=== PATIENT | female | born 1985 | race African-American/Black ===

== ENCOUNTER 2016-12-24 14:12 | Emergency (ER) | payer OTHER ==
[~2016-12-24] VITALS: Ht 170.2 cm; Wt 98.9 kg
[~2016-12-24 14:12] MED LIST: FLONASE120 SPRAY/ NASB; NAPROXEN500 MG PO; TESSALON PERLE100 M1 PO; TESSALON PERLE100 MG PO; VENTOLIN HFA18 GM INH; VENTOLIN1 PUF INH
--- NOTE | 2016-12-24 14:50 | ED CARDIAC/CP/PALPITATIONS ---
History of Present Illness General Chief Complaint: Chest Pain Stated Complaint: CP Source: patient Exam Limitations: no limitations Vital Signs & Intake/Output Vital Signs & Intake/Output Vital Signs Date Time Temp Pulse Resp B/P Pulse O2 O2 Flow FiO2 Ox Delivery Rate 12/24 1720 98.6 76 18 126/84 98 Room Air 12/24 1532 96 Room Air 12/24 1420 97.0 72 18 123/84 98 Room Air Allergies Coded Allergies: NO KNOWN ALLERGIES (UNKNOWN 12/24/16) Reconcile Medications Omeprazole Magnesium (Prilosec Otc) 20 MG TABLET.DR 1 TAB PO DAILY PRN PUD Triage Note: PT STATES THAT AT 1245 SHE STARTED TO GET A DULL CRAMPING FEELING MID EPIGASTRIC AREA AND IT HAS BEEN SLOWLY INCREASING, STATES THAT 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 yes Onset: Gradual Duration: better Timing: recent history Location: abdomen Radiation: no radiation Nitro Today/Relief: no nitro taken today : No Patient currently breastfeeds: No HPI: Patient is a 31-year-old female with a past medical history of chronic neck and back pain who states in the past week she's increase her dosing of ibuprofen for her pain where she states that today while at rest she had a gradual onset of epigastric discomfort no provocative eating had occurred prior to onset. Patient states that with no medications her symptoms have improved and she currently is a 3/10 dull epigastric pain. Patient denies any significant alcohol use. Denies any fever chills chest pain arm pain jaw pain nausea vomiting. Patient currently is menstruating. Last bowel movement was with the last 24 hours no blood no melena noted (GUNNAR TANG) Past History Travel History Traveled to [place] past 21 day No Medical History Any Pertinent Medical History? see below for history Neurological: NONE EENT: NONE Cardiovascular: NONE Respiratory: NONE Gastrointestinal: NONE Hepatic: NONE Renal: NONE Musculoskeletal: NONE Psychiatric: NONE Endocrine: diabetes Surgical History Surgical History: non-contributory Psychosocial History What is your primary language Lithuanian Tobacco Use: Never used ETOH Use: denies use Illicit Drug Use: denies illicit drug use Family History Hx Contributory? No (GUNNAR TANG) Review of Systems Review of Systems Constitutional: Reports: no symptoms. EENTM: Reports: no symptoms. Respiratory: Reports: no symptoms. Cardiovascular: Reports: no symptoms. GI: Reports: see HPI, abdominal pain. Genitourinary: Reports: no symptoms. Musculoskeletal: Reports: no symptoms. Skin: Reports: no symptoms. Neurological/Psychological: Reports: no symptoms. Hematologic/Endocrine: Reports: no symptoms. Immunologic/Allergic: Reports: no symptoms. All Other Systems: Reviewed and Negative (GUNNAR TANG) Physical Exam Physical Exam General Appearance: no apparent distress, alert, comfortable Cardiovascular: regular rate/rhythm Comments: HEENT: Normal EENT exam, Neck: Supple, no lymphadenopathy, normal range of motion without pain or tenderness Back: Nontender, no CVA tenderness. Cardiovascular: Regular rate and rhythms no murmurs rubs or gallops, normal JVP Respiratory: Chest nontender. No respiratory distress.breath sounds clear to auscultation bilaterally Abdomen: Soft mild epigastric point tenderness, no right upper quadrant tenderness no right lower quadrant tenderness no peritoneal signs nondistended, no appreciable organomegaly. Normal bowel sounds. No ascites Extremity: No edema, no calf tenderness to palpation, normal and equal pulses. Neuro: Alert oriented x3, motor sensory normal, cranial nerves II through XII grossly intact. Skin: No appreciable rash on exposed skin, skin is warm and dry. Psych: Mood and affect is normal, memory and judgment is normal. Core Measures ACS in differential dx? Yes Severe Sepsis Present: No Septic Shock Present: No (GUNNAR TANG) Progress Differential Diagnosis: AMI, aortic dissection, atrial fibrillation, cholecystitis, CHF/pulm edema, costochondritis, hyperkalemia, hypovolemia, hyperthyroid, hyperventilation, intracranial hemorrhage, musculoskeletal pain, myocarditis, pancreatitis, pericarditis, pneumonia, pneumothorax, PSVT, pulmonary embolism, PUD/GERD, PVCs/PACs, respiratory failure, rib fracture, sepsis, unstable angina, WPW syndrome Plan of Care: Orders Procedure Date/time Status TROPONIN LEVEL 12/24 1510 Complete LIPASE 12/24 1510 Complete HUMAN BETA HCG SCREEN 12/24 1510 Complete COMPREHENSIVE METABOLIC PANEL 12/24 1510 Complete CBC WITHOUT DIFFERENTIAL 12/24 1510 Complete AMYLASE 12/24 1510 Complete EKG 12/24 1413 Active Laboratory Tests 12/24/16 1529: Anion Gap 11, Estimated GFR > 60, BUN/Creatinine Ratio 26.7 H, Glucose 98, Calcium 9.6, Total Bilirubin 0.3, AST 86 H, ALT 73 H, Alkaline Phosphatase 84, Troponin I < 0.01, Total Protein 7.6, Albumin 4.3, Globulin 3.3, Albumin/ Globulin Ratio 1.3, Amylase 57, Lipase 96, Total Beta HCG NEGATIVE, CBC w Diff NO MAN DIFF REQ, RBC 4.29, MCV 88.7, MCH 29.5, RDW 13.7, MPV 8.1, Gran % 68.5, Lymphocytes % 25.4, Monocytes % 4.3, Eosinophils % 1.5, Basophils % 0.3, Absolute Granulocytes 5.1, Absolute Lymphocytes 1.9, Absolute Monocytes 0.3, Absolute Eosinophils 0.1, Absolute Basophils 0, PUBS MCHC 33.3 Due to history of present illness and exam findings patient has suspicion of peptic ulcer disease. Patient had unremarkable labs. Patient describes no cardiovascular complaints or pulmonary complaints. Patient has reproducible pain upon epigastric point tenderness and patient also has been taking significant NSAIDs. Patient was given GI cocktail and had resolution of epigastric pain. Patient was strongly advised follow-up at GI. And to avoid NSAIDs in the future. Upon discharge patient looks well no apparent distress and will comply with discharge instructions and had no questions (GUNNAR TANG) Initial ED EK BPM NORMAL SINUS RHYTHM (GUNNAR TANG) Departure Departure Disposition: HOME OR SELF CARE Condition: Stable Clinical Impression Primary Impression: Epigastric abdominal pain Referrals: RAMYA GRULLON,DIAMANTE MOFFETT MD,KONG Martinez (PCP/Family) Additional Instructions: As discussed please avoid NSAID such as ibuprofen, Motrin or Advil as this may worsen your symptoms, please begin [id number] Tylenol for pain and inflammation. Begin the prescription of Prilosec for your symptoms. If symptoms worsen return to the emergency room. If no better on Tuesday follow-up and establish a oilfield plant and field operator Dr. BUI. Prescription is waiting at [facility] pharmacy. Departure Forms: Customer Survey General Discharge Information Prescriptions: Current Visit Scripts Omeprazole Magnesium (Prilosec Otc) 1 TAB PO DAILY PRN PUD #30 TAB (GUNNAR TANG) PA/STRANDING SUPERVISOR Co-Sign Statement Statement: ED Attending supervision documentation- [] I saw and evaluated the patient. I have also reviewed all the pertinent lab results and diagnostic results. I agree with the findings and the plan of care as documented in the PA's/STRANDING SUPERVISOR's documentation. [X] I have reviewed the ED Record and agree with the PA's/STRANDING SUPERVISOR's documentation. [] Additions or exceptions (if any) to the PAs/STRANDING SUPERVISOR's note and plan are summarized below: [] (OJHNATHON GRULLON,RERE) Critical Care Note Critical Care Note Critical Care Time: non-applicable (GUNNAR TANG)
[2016-12-24 15:39] LABS: ABSOLUTE BASOPHIL COUNT 0 /CUMM (0.0-0.2); ABSOLUTE EOSINOPHIL COUNT 0.1 /CUMM (0.0-0.7); ABSOLUTE GRANULOCYTE CT 5.1 /CUMM (1.4-6.5); ABSOLUTE LYMPH COUNT 1.9 /CUMM (1.2-3.4); ABSOLUTE MONOCYTE COUNT 0.3 /CUMM (0.10-0.60); BASOPHIL % 0.3 % (0.0-2.0); EOSINOPHIL % 1.5 % (0-5); GRANULOCYTE % 68.5 % (42.2-75.2); HEMATOCRIT 38.1 % (37-47); MEAN CORPUSCULAR HGB 29.5 PG (27.0-31.0); MEAN CORPUSCULAR HGB CONC 33.3 G/DL (33.0-37.0); MEAN CORPUSCULAR VOLUME 88.7 FL (81.0-99.0); MEAN PLATELET VOLUME 8.1 FL (7.4-10.4); PLATELET COUNT 318 /CUMM (130-400); RBC DISTRIBUTION WIDTH 13.7 % (11.5-14.5); RED BLOOD CELL CT 4.29 /CUMM (4.20-5.40); WHITE BLOOD CELL COUNT 7.5 /CUMM (4.8-10.8)
[2016-12-24] MEDS ORDERED: PRILOSEC OTC20 M1 PO (16:31)
[2016-12-24 17:20] VITALS: BP 126/84
== END 2016-12-24 17:21 ==
LOC: ERH 14:12
PROVIDERS: Physician Assistant
DX: R10.13 Epigastric pain (principal)
CPT/HCPCS: 93005; 93010